=== PATIENT | male | born 1960 | race Caucasian/White ===

== ENCOUNTER → 2021-08-21 | Outpatient (CLI) | payer MEDICARE, OTHER ==
[~2021-08-21] MED LIST: ANORO ELLIPTA1 EACH INH; CYCLOBENZAPRINE10 MG PO; GOODY'S PM POW1 EACH PO; HYDROXYZINE PAM25 MG PO; IBUPROFEN; NEURONTIN800 MG PO; NORVASC5 MG PO; PROTONIX40 MG PO; SUBOXONE 8 MG-1 EACH SL
[2021-08-21 12:39] LABS: HEMOGLOBIN 16.2 gm/dl (14.0-17.5); RED BLOOD COUNT 5.8 M/UL (4.20-5.50); WHITE BLOOD COUNT 6.9 K/UL (4.5-11.0)
[2021-08-21 13:27] LABS: BUN/CREATININE RATIO 18 (0-10)
== END ==
LOC: OPSV2 10:00 → EDSTATUS 11:00 → OPSV2 11:00
PROVIDERS: Orthopaedic Surgery
DX: Z01.818 Encounter for other preprocedural examination (principal); M17.11 Unilateral primary osteoarthritis, right knee
CPT/HCPCS: 36415; 80048; 85025; 93005

== ENCOUNTER → 2021-08-28 | Outpatient (CLI) | payer MEDICARE, OTHER | LOC: HEART 5 10:01 | DX: Z00.00 Encounter for general adult medical examination without abnormal findings (principal); J20.9 Acute bronchitis, unspecified; J42 Unspecified chronic bronchitis; R09.02 Hypoxemia; J43.9 Emphysema, unspecified; J98.11 Atelectasis; Z87.01 Personal history of pneumonia (recurrent) | CPT/HCPCS: 71046; 94060; 94729 ==

== ENCOUNTER → 2021-10-09 | Outpatient (CLI) | payer MEDICARE, OTHER ==
[~2021-10-09] MED LIST changes: +ASPIR-TRIN325 MG PO; +HYDROCODON-ACE1 EAC6 PO; +PROAIR HFA8.5 GM INH
[2021-10-09 11:22] LABS: HEMOGLOBIN 16.5 gm/dl (14.0-17.5); RED BLOOD COUNT 5.88 M/UL (4.20-5.50); WHITE BLOOD COUNT 7.7 K/UL (4.5-11.0)
[2021-10-09 11:48] LABS: BUN/CREATININE RATIO 17 (0-10)
== END ==
LOC: OPSV2 10-06 12:30 → EDSTATUS 11:00
PROVIDERS: Orthopaedic Surgery
DX: Z01.812 Encounter for preprocedural laboratory examination (principal); M17.11 Unilateral primary osteoarthritis, right knee
CPT/HCPCS: 80048; 85025; 86850; 86900; 86901

== ENCOUNTER 2021-10-10 05:24 | Day surgery (SDC) | payer MEDICARE, OTHER ==
[~2021-10-10] VITALS: Ht 177.8 cm; Wt 83.9 kg
[~2021-10-10 05:24] MED LIST changes: -ASPIR-TRIN325 MG PO; -HYDROCODON-ACE1 EAC6 PO
[2021-10-11] MEDS ORDERED: HYDROCODON-ACE1 EAC6 PO (09:31)
[2021-10-11] MEDS ORDERED: ASPIR-TRIN325 MG PO (09:31)
== END 2021-10-11 11:57 | disposition home or self-care (01) ==
LOC: OR 05:24 → M/S 05:24 → OR 07:30 → M/S 12:09 → OR 10-11 11:57
DX: M17.11 Unilateral primary osteoarthritis, right knee (principal); G89.18 Other acute postprocedural pain; I10 Essential (primary) hypertension; J44.9 Chronic obstructive pulmonary disease, unspecified; K21.9 Gastro-esophageal reflux disease without esophagitis; F41.0 Panic disorder [episodic paroxysmal anxiety]; Z87.891 Personal history of nicotine dependence; Z79.899 Other long term (current) drug therapy
CPT/HCPCS: 73560; 76000; 97116; 97116-GP-CQ; 97162; 97165; 97535; C1713; C1776; J0171; J0690; J0735; J1100; J1170; J1885; J2001; J2250; J2274; J2405; J2704; J2795; J3010; J7120; Q0177